=== PATIENT | male | born 1995 | race Two or more races ===

== ENCOUNTER 2024-11-26 14:41 | Outpatient (CLI) | payer MEDICAID ==
[2024-11-26] MEDS ORDERED: ALBUTEROL SULF 2.5 MG/0.5ML(0.5%) NEB SOLN ONE (14:52)
== END 2024-11-26 17:00 | disposition home or self-care (01) ==
LOC: RT 14:41
PROVIDERS: ATTEND Internal Medicine Pulmonary Disease
DX: R06.09 Other forms of dyspnea (principal); R05.9 Cough, unspecified; R06.02 Shortness of breath; F17.210 Nicotine dependence, cigarettes, uncomplicated; Z79.52 Long term (current) use of systemic steroids
CPT/HCPCS: 94010; 94060; 94727; 94729

== ENCOUNTER 2025-01-12 08:57 | Outpatient (CLI) | payer MEDICAID ==
[~2025-01-12] VITALS: Ht 170.2 cm; Wt 86.2 kg
== END 2025-01-12 17:00 | disposition home or self-care (01) ==
LOC: Rad HDHVI 08:57
PROVIDERS: ATTEND Internal Medicine Cardiovascular Disease
DX: I49.1 Atrial premature depolarization (principal); R00.0 Tachycardia, unspecified; I10 Essential (primary) hypertension; R00.1 Bradycardia, unspecified; E11.9 Type 2 diabetes mellitus without complications; E78.00 Pure hypercholesterolemia, unspecified; F17.210 Nicotine dependence, cigarettes, uncomplicated; Z13.6 Encounter for screening for cardiovascular disorders; Z82.49 Family history of ischemic heart disease and other diseases of the circulatory system
CPT/HCPCS: 78452; 93017; A9500; 96374